=== PATIENT | male | born 1970 | race Caucasian/White ===

== ENCOUNTER 2018-02-15 12:08 | Emergency (ER) | payer OTHER ==
[~2018-02-15 12:08] MED LIST: Iopamidol 370 76% 100 ML VIAL ONE
[2018-02-15 12:47] LABS: CKMB 1.7 ng/mL (0-6.6); Troponin I Less than 0.010 ng/mL (< 0.028)
[2018-02-15 12:53] LABS: Hemoglobin 12.9 g/dL (14.0-18.0); Mean Corpuscular HGB CONC 30.4 g/dL (32.0-36.0); Mean Corpuscular Hemoglobin 24.4 pg (27.0-31.0); Mean Corpuscular Volume 80.4 fl (80.0-94.0); Mean Platelet Volume 4.8 fL (7.4-10.4); Platelet Count 571 thou/uL (130-400); RBC Distribution Width 16.7 % (11.5-14.5); Red Blood Cell (RBC) Count 5.28 mill/uL (4.70-6.10); White Blood Cell (WBC) Count 7.4 thou/uL (4.8-10.8)
[2018-02-15 13:01] LABS: #Basophils 0.1 thou/uL (0.0-0.2); #Eosinphils 0.1 thou/uL (0.0-0.7); #Lymphocytes 1.2 thou/uL (1.20-3.40); #Monocytes 0.8 thou/uL (0.11-0.59); #Neutrophils 5.2 thou/uL (1.40-6.50); %Basophils 1.3 % (0.0-1.0); %Eosinophils 0.7 % (0.0-10.0); %Lymphocytes 16.5 % (21.0-51.0); %Monocytes 11.1 % (0.0-10.0); %Neutrophils 70.4 % (42.0-75.0); PLT Morphology Comment Appears Increased
[2018-02-15 13:09] LABS: ALT (SGPT) 18 U/L (8-55); AST (SGOT) 22 U/L (5-34); Albumin 4.5 g/dL (3.5-5.0); Alkaline Phosphatase 82 U/L (40-150); Anion Gap 22 mmol/L (10-20); BUN (Urea Nitrogen) 28 mg/dL (8.9-20.6); Calc. Creatinine Clearance 0 mL/min (70-130); Calcium 10.4 mg/dL (7.8-10.44); Carbon Dioxide 19 mmol/L (22-29); Chloride 103 mmol/L (98-107); Estimated GFR-MDRD 61; Globulin 3.1 g/dL (2.4-3.5); Glucose 124 mg/dL (70-105); Potassium 3.6 mmol/L (3.5-5.1); Protein, Total 7.6 g/dL (6.0-8.3); Sodium 140 mmol/L (136-145)
[2018-02-15] MEDS ORDERED: Sodium Chloride 0.9% 1,000 ML ONE (13:09)
--- NOTE | 2018-02-15 13:24 | RAD ---
SEMIUPRIGHT PORTABLE CHEST 1 VIEW: Date: 02/15/18 HISTORY: 47-year-old male with history of chest pain, weakness, and dizziness, with back pain, shortness of br eath, and blurred vision. FINDINGS: Heart size is within normal limits. Lungs are clear. No pneumonia, edema, pleural effusion, or other acute intrathoracic disease. IMPRESSION: No acute intrathoracic disease. POS: [facility]
--- NOTE | 2018-02-15 14:21 | CT ---
CT ANGIOGRAM OF THE CHEST: HISTORY: Dizziness. Weakness. Shortness of breath. Back pain. Blurred vision. COMPARISON: None. TECHNIQUE: CT angiogram of the chest is performed in the axial plane. Bilateral coronal and sagittal 3-dimensio nal reformatted images are submitted for interpretation. FINDINGS: No mediastinal mass, lymphadenopathy, or hematoma. Heart size is within normal limits. No pericardi al effusion. The thoracic aorta and upper abdominal aorta have an overall normal caliber. No periao rtic fat stranding. Bariatric changes in the stomach are noted. Upper solid organs are unremarkable. Trachea and central bronchi are patent. No masses or consolidation. No pleural effusion. NO pneumo thorax. No lytic or blastic lesions in the osseous structures. Adequate contrast opacification of the pulmonary arterial system to the level of the segmental arteri es. No filling defect to suggest thromboembolism. IMPRESSION: No evidence of pulmonary artery embolism to the segmental artery. POS: [facility]
[2018-02-15 15:10] LABS: Troponin I Less than 0.010 ng/mL (< 0.028)
== END 2018-02-15 15:26 | disposition home or self-care (01) ==
LOC: NAV ERS 12:08
DX: E86.0 Dehydration (principal); K58.9 Irritable bowel syndrome, unspecified
CPT/HCPCS: 36415; 71045; 71275; 80053; 82553; 84484; 85025; 85379; 93005; 94760; 96360; 96361; J7050